=== PATIENT | male | born 1990 | race African-American/Black ===

== ENCOUNTER 2017-05-20 12:19 | Emergency (ER) | payer BC ==
[2017-05-20] MEDS ORDERED: ALBUTEROL 2.5 MG/3 ML NEB SOL ONE (13:05)
--- NOTE | 2017-05-20 13:23 | RAD REPORT ---
EXAM DESCRIPTION: RAD - Chest Pa And Lat (2 Views) - 05/20/2017 1:14 pm CLINICAL HISTORY: Persistent cough COMPARISON: None. TECHNIQUE: PA and lateral views of the chest were obtained. FINDINGS: The lungs are clear of failure, infiltrate and mass. Minimal prominence of the interstitia l markings noted believed to be baseline for the patient. Trachea is midline. Heart size is normal and central vasculature is within normal limits. No pleural effusion or pneumothorax seen. No acute bony finding noted. No aortic abnormality. IMPRESSION: No acute cardiopulmonary process.
--- NOTE | 2017-05-20 13:29 | ER ---
Nurse's Notes [facility] Name: Estrada Carey Age: 27 yrs Sex: Male : 1990 Arrival Date: 05/20/2017 Time: 12:20 Bed 7 Private MD: Diagnosis: Acute bronchitis Presentation: 05/20 12:25 Presenting complaint: Patient states: Patient reports cough for 1 week. Transition of aj care: patient was not received from another setting of care. Onset of symptoms was May 15, 2017. Care prior to arrival: None. 12:25 Method Of Arrival: Ambulatory aj 12:25 Acuity: MARILIN 3 aj 12:25 Acuity: MARILIN 4 aj Triage Assessment: 12:27 General: Appears in no apparent distress. comfortable, Behavior is calm, cooperative, aj appropriate for age. Pain: Denies pain. Neuro: Level of Consciousness is awake, alert, obeys commands, Oriented to person, place, time, situation. Respiratory: Reports cough that is Onset: The symptoms/episode began/occurred gradually, the patient has mild shortness of breath. Derm: Skin is intact, is healthy with good turgor, Skin is pink, warm \T\ dry. normal. Historical: - Allergies: 12: No Known Allergies; aj - Home Meds: 12: None [Active]; aj - PMHx: 12: Hypertension; aj - PSHx: 12: None; aj - Immunization history:: Adult Immunizations up to date. - Social history:: Smoking status: Patient uses tobacco products, smokes one-half pack cigarettes per day. Screenin:30 Abuse screen: Denies threats or abuse. Denies injuries from another. Nutritional hb screening: No deficits noted. Tuberculosis screening: No symptoms or risk factors identified. 12:30 Fall Risk None identified. hb Assessment: 12:30 General: Appears in no apparent distress. Behavior is calm, cooperative. Pain: Denies hb pain. Neuro: Level of Consciousness is awake, alert, obeys commands, Oriented to person, place, time, situation. Cardiovascular: Capillary refill < 3 seconds Patient's skin is warm and dry. Rhythm is regular. Respiratory: Airway is patent Respiratory effort is even, unlabored, Respiratory pattern is regular, symmetrical, Breath sounds are clear bilaterally. GI: No signs and/or symptoms were reported involving the gastrointestinal system. : No signs and/or symptoms were reported regarding the genitourinary system. EENT: No signs and/or symptoms were reported regarding the EENT system. Derm: No signs and/or symptoms reported regarding the dermatologic system. Skin is intact, is healthy with good turgor. Musculoskeletal: No signs and/or symptoms reported regarding the musculoskeletal system. 13:24 Reassessment: Patient appears in no apparent distress at this time. Patient and/or hb family updated on plan of care and expected duration. Pain level reassessed. Patient is alert, oriented x 3, equal unlabored respirations, skin warm/dry/pink. Patient denies pain at this time. Patient states symptoms have improved. Vital Signs: 12:27 BP 144 / 95; Pulse 78; Resp 17; Temp 98.6; Pulse Ox 98% on R/A; Weight 115.67 kg; aj Height 5 ft. 8 in. (172.72 cm); Pain 0/10; 13:24 BP 142 / 88; Pulse 87; Resp 16; Pulse Ox 100% on R/A; Pain 0/10; hb 12:27 Body Mass Index 38.77 (115.67 kg, 172.72 cm) aj ED Course: 12:20 Patient arrived in ED. sb2 12:26 Triage completed. aj 12:27 Arm band placed on left wrist. Patient placed in an exam room. aj 12:28 Vito Cain MD is Attending Physician. gs 12:30 Patient has correct armband on for positive identification. Bed in low position. Call hb light in reach. Side rails up X 1. 12:44 Lisbeth Finch, WILLIAMS is Primary Nurse. hb 13:11 X-ray completed. Patient tolerated procedure well. Patient moved to radiology via jb2 wheelchair. Patient moved back from radiology. 13:12 XRAY Chest Pa And Lat (2 Views) In Process Unspecified. EDMS 13:39 No provider procedures requiring assistance completed. Patient did not have IV access hb during this emergency room visit. Administered Medications: 12:53 Drug: Albuterol 2.5 mg Route: Inhalation; hb 13:38 Follow up: Response: No adverse reaction hb Outcome: 13:28 Discharge ordered by MD. gs 13:39 Discharged to home ambulatory. hb 13:39 Condition: stable 13:39 Discharge instructions given to patient, Instructed on discharge instructions, follow up and referral plans. medication usage, Demonstrated understanding of instructions, follow-up care, medications, Prescriptions given X 1. 13:39 Patient left the ED. hb Signatures: Dispatcher [employer] EDMarleny Thakur, Jeremie Mckinley RN2 Lisbeth Finch RN RN Vito Cain MD MD gs Billeau, Sheri sb2 Corrections: (The following items were deleted from the chart) 12:55 12:20 General: Appears in no apparent distress. Behavior is calm, cooperative, hb hb 12:55 12:20 Pain: Denies pain. hb hb 12:55 12:20 Neuro: Level of Consciousness is awake, alert, obeys commands, Oriented to hb person, place, time, situation, hb 12:55 12:20 Cardiovascular: Capillary refill < 3 seconds Patient's skin is warm and dry. hb Rhythm is regular hb 12:55 12:20 Respiratory: Airway is patent Respiratory effort is even, unlabored, Respiratory hb pattern is regular, symmetrical, Breath sounds are clear bilaterally. hb 12:55 12:20 GI: No signs and/or symptoms were reported involving the gastrointestinal system. hb hb 12:55 12:20 : No signs and/or symptoms were reported regarding the genitourinary system. hb hb 12:55 12:20 EENT: No signs and/or symptoms were reported regarding the EENT system. hb hb 12:55 12:20 Derm: No signs and/or symptoms reported regarding the dermatologic system. Skin hb is intact, is healthy with good turgor, hb 12:55 12:20 Musculoskeletal: No signs and/or symptoms reported regarding the musculoskeletal hb system. hb
--- NOTE | 2017-05-20 13:29 | EDPHYS ---
Physician Documentation [facility] Name: Estrada Carey Age: 27 yrs Sex: Male : 1990 Arrival Date: 05/20/2017 Time: 12:20 Bed 7 Private MD: ED Physician Vito Cain HPI: 05/20 13:26 This 27 yrs old Black Male presents to ER via Ambulatory with complaints of Shortness gs Of Breath, Cough. 13:26 Onset: The symptoms/episode began/occurred 2 week(s) ago, and became persistent. gs Severity of symptoms: At their worst the symptoms were moderate, in the emergency department the symptoms are unchanged. Modifying factors: The symptoms are alleviated by nothing, the symptoms are aggravated by smoke. Associated signs and symptoms: Pertinent negatives: fever. The patient has experienced similar episodes in the past, a few times. Historical: - Allergies: 12:27 No Known Allergies; aj - Home Meds: 12:27 None [Active]; aj - PMHx: 12:27 Hypertension; aj - PSHx: 12:27 None; aj - Immunization history:: Adult Immunizations up to date. - Social history:: Smoking status: Patient uses tobacco products, smokes one-half pack cigarettes per day. ROS: 13:26 All other systems are negative. gs Exam: 13:26 Head/Face: Normocephalic, atraumatic. Eyes: Pupils equal round and reactive to light, gs extra-ocular motions intact. Lids and lashes normal. Conjunctiva and sclera are non-icteric and not injected. Cornea within normal limits. Periorbital areas with no swelling, redness, or edema. ENT: Nares patent. No nasal discharge, no septal abnormalities noted. Tympanic membranes are normal and external auditory canals are clear. Oropharynx with no redness, swelling, or masses, exudates, or evidence of obstruction, uvula midline. Mucous membranes moist. Neck: Trachea midline, no thyromegaly or masses palpated, and no cervical lymphadenopathy. Supple, full range of motion without nuchal rigidity, or vertebral point tenderness. No Meningismus. Chest/axilla: Normal chest wall appearance and motion. Nontender with no deformity. No lesions are appreciated. Cardiovascular: Regular rate and rhythm with a normal S1 and S2. No gallops, murmurs, or rubs. Normal PMI, no JVD. No pulse deficits. Respiratory: Lungs have equal breath sounds bilaterally, clear to auscultation and percussion. No rales, rhonchi or wheezes noted. No increased work of breathing, no retractions or nasal flaring. Abdomen/GI: Soft, non-tender, with normal bowel sounds. No distension or tympany. No guarding or rebound. No evidence of tenderness throughout. Back: No spinal tenderness. No costovertebral tenderness. Full range of motion. Skin: Warm, dry with normal turgor. Normal color with no rashes, no lesions, and no evidence of cellulitis. MS/ Extremity: Pulses equal, no cyanosis. Neurovascular intact. Full, normal range of motion. Neuro: Awake and alert, GCS 15, oriented to person, place, time, and situation. Cranial nerves II-XII grossly intact. Motor strength 5/5 in all extremities. Sensory grossly intact. Cerebellar exam normal. Normal gait. 13:26 Constitutional: The patient appears alert, awake. Vital Signs: 12:27 BP 144 / 95; Pulse 78; Resp 17; Temp 98.6; Pulse Ox 98% on R/A; Weight 115.67 kg; aj Height 5 ft. 8 in. (172.72 cm); Pain 0/10; 13:24 BP 142 / 88; Pulse 87; Resp 16; Pulse Ox 100% on R/A; Pain 0/10; hb 12:27 Body Mass Index 38.77 (115.67 kg, 172.72 cm) aj MDM: 12:37 Patient medically screened. 13:26 Differential Diagnosis: Bronchitis Upper Respiratory Infection Pneumonia. Data gs reviewed: vital signs, nurses notes. Response to treatment: the patient's symptoms have markedly improved after treatment, and as a result, I will discharge patient. 05/20 12:38 Order name: XRAY Chest Pa And Lat (2 Views); Complete Time: 13:26 gs Administered Medications: 12:53 Drug: Albuterol 2.5 mg Route: Inhalation; hb 13:38 Follow up: Response: No adverse reaction hb Disposition: 05/20/17 13:28 Discharged to Home. Impression: Acute bronchitis. - Condition is Stable. - Discharge Instructions: Acute Bronchitis. - Prescriptions for Prednisone 20 mg Oral Tablet - take 1 tablet by ORAL route once daily for 5 days; 5 tablet. Albuterol Sulfate 90 mcg/actuation - inhale 1-2 puff by INHALATION route every 4-6 hours; 1 Inhaler. - Medication Reconciliation Form, Thank You Letter, Antibiotic Education, Prescription Opioid Use form. - Follow up: Private Physician; When: 2 - 3 days; Reason: Re-evaluation by your physician. Signatures: Dispatcher [employer] Marleny Bojorquez RN RN aj Baxter, Heather, RN RN hb Starr, Gregory, MD MD
== END 2017-05-20 13:39 | disposition home or self-care (01) ==
LOC: ER 12:19
DX: J20.9 Acute bronchitis, unspecified (principal); I10 Essential (primary) hypertension; F17.210 Nicotine dependence, cigarettes, uncomplicated
CPT/HCPCS: 71046; 99284